=== PATIENT | female | born 1985 | race Caucasian/White ===

== ENCOUNTER 2022-03-18 14:03 | Outpatient (CLI) | payer OTHER, SELFPAY ==
[2022-03-18 15:45] LABS: Alanine Aminotransferase 23 U/L (6-35); Albumin Level 4.6 g/dL (3.5-5.1); Alkaline Phosphatase 73 U/L (38-126); Amylase 86 U/L (30-110); Aspartate Amino Transferase 23 U/L (14-36); Bilirubin,Total 0.4 mg/dL (0.2-1.3); Lipase 86 U/L (23-300)
== END 2022-03-18 14:04 | disposition home or self-care (01) ==
PROVIDERS: PCP Nurse Practitioner Family; Visit Provider Surgery
DX: K80.10 Calculus of gallbladder with chronic cholecystitis without obstruction (principal); Z01.818 Encounter for other preprocedural examination
CPT/HCPCS: 36415; 80076; 82150; 83690; 86850; 86900; 86901

== ENCOUNTER 2022-03-22 01:25 | Day surgery (SDC) | payer OTHER, SELFPAY ==
[2022-03-16 14:28] VITALS: BMI 33.7
--- NOTE | 2022-03-16 14:29 | SUR.PREOP ---
Addendum entered by Moni Lozano RN 03/17/22 11:01: MAY TAKE ESCITALOPRAM MORNING OF SURGERY WITH A SMALL SIP OF WATER. Original Note: Report to the Outpatient Waiting Room, entrance under the model pavilion located off [facility], at time _0830 on date _03/22/22 . OR Time: __1030 . - You and your visitor will be asked to self-screen and do not enter if you have any COVID symptoms. - Only one visitor and NO children visitors are allowed at this time. - The patient visitor is requested to leave or wait in car when not with patient due to restrictions. - A mask is required within the hospital. Patients may have clear liquids (water, carbonated beverages, clear teas, apple juice) until 3 hours prior to surgery with a maximum of 20 ounces. - No food from midnight until time of surgery - Infants may have breast milk until 4 hours before surgery, infant formula 6 hours prior to surgery. - Children will be allowed to drink immediately following surgery. If applicable, please bring a bottle or sippy cup to assist with drinking. Juice, water, soda, and popsicles are readily available. For infants on formula, please bring formula the day of surgery. Pacifiers are allowed. Take the following medications with a SIP of water the morning of surgery: ____n/a Medications to discontinue per physician n/a Date to take last dose__n/a Please no make-up, nail wolof, hairspray, perfume, deodorant, or body powder the day of surgery. No jewelry (including any body piercings) or valuables the day of surgery, leave them at home. Please take a shower or bath the night before, or the morning of, surgery with an antibacterial soap. Wear comfortable, loose fitting clothing. Children are encouraged to wear pajamas. HIBICLENS SHOWER AM OF SURGERY - Jewelry must be removed prior to entering the operating room. Rings and piercings that are not removed may be cut off. - The hospital will not accept responsibility for valuables. - Please leave all valuables, including medications, at home the day of surgery. If you are going home after surgery, a licensed sheet pile driver operator must drive you home. - NO public transportation without another adult. - We recommend that an adult stay with you for 24 hours following discharge. - We also recommend that you do not drive, make important decision, drink alcoholic beverages, or take any drugs that were not prescribed by your health care provider for at least 24 hours after your discharge time. For Pediatric surgeries, we recommend two adults accompany the child home (only one inside the building at this time). Follow any additional instructions given to you from your surgeon. If you or anyone in your household have experienced Covid symptoms in the past week, please notify your surgeon or the nurse liaison at the phone number below for possible testing. Telephone instructions given to __dora cross and asked if any additional questions and then verbalized understanding. Patient advised to call surgeon office or pre surgery nurse liaison [phone] if any additional questions.
[2022-03-22] VITALS (10 sets, daily range): BP systolic 97–129; BP diastolic 58–93; PULSE 61–74; RESP 16–24; TEMP 36.4–36.6; O2SAT 93–100
--- NOTE | 2022-03-22 10:11 | WPDANESEPPF ---
Anes - Initial Pre Proc Eval Procedure: Operation Date: 03/22/22 14:00 Proposed Procedures p Laparoscopic Cholecystectomy - Amie Reyes MD <Sinan Nelson DO - Last Filed: 03/22/22 12:24> Date/Time: 03/22/22 10:11 <Sinan Nelson DO - Last Filed: 03/22/22 12:24> Surgeon: Amie Reyes MD <Sinan Nelson DO - Last Filed: 03/22/22 12:24> Pre Op Diagnosis: Chronic Cholecystitis with Cholelithiasis <Sinan Nelson DO - Last Filed: 03/22/22 12:24> Patient Data Age: 36 Gender: F Height: 1.7 m Weight: 97.72 kg <Sinan Nelson DO - Last Filed: 03/22/22 12:24> Allergies Allergy/AdvReac Type Severity Reaction Status Date / Time No Known Allergies Allergy Verified 03/22/22 11:56 <Sinan Nelson DO - Last Filed: 03/22/22 12:24> Home Medications Medication Instructions Recorded Confirmed Type atogepant 60 mg tablet (Qulipta) 60 mg PO DAILY 03/01/22 03/22/22 History escitalopram oxalate 5 mg tablet 5 mg PO DAILY 03/01/22 03/22/22 History omeprazole 40 mg capsule,delayed 40 mg PO DAILY 03/01/22 03/22/22 History release ubrogepant 100 mg tablet (Ubrelvy) 100 mg PO PRN 03/01/22 03/16/22 History <Sinan Nelson DO - Last Filed: 03/22/22 12:24> Patient hx anesthesia problems: none <Pito Stone MD - Last Filed: 03/22/22 12:06> Family hx anesthesia problems: none <Pito Stone MD - Last Filed: 03/22/22 12:06> Results Review: All pre-operative results and documents have been reviewed as part of the pre-operative evaluation. <Sinan Nelson DO - Last Filed: 03/22/22 12:24> [facility] Past Medical History Medical History: Medical History (Updated 03/22/22 @ 12:24 by Sinan Nelson DO) Acute anxiety GERD (gastroesophageal reflux disease) History of PCOS Migraine <Sinan Nelson DO - Last Filed: 03/22/22 12:24> Surgical History Surgical History: Surgical History H/O tubal ligation 2017 H/O wisdom tooth extraction 2020 <Sinan Nelson DO - Last Filed: 03/22/22 12:24> Social History Social History: Social History Social History: daily caffeine use- 1 cup of coffee per day Smoking status: Never smoker Alcohol intake: current Drinks per week: 1 Alcohol use details: social use-wine Substance use: never Substance use type: does not use Living arrangements: with family Additional living arrangements comments: Patient is with one child 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 Gender identity (if verbalized by the patient): Female Sexual Orientation (if Verbalized by the Patient): Straight or Heterosexual Spiritual care concerns: No <Sinan Nelson DO - Last Filed: 03/22/22 12:24> Anes - Eval Final PreProcedure Day of Procedure 03/22/22 10:11 <Sinan Nelson DO - Last Filed: 03/22/22 12:24> Patient weight: obese <Sinan Nelson DO - Last Filed: 03/22/22 12:24> Heart: regular rate and rhythm <Sinan Nelson DO - Last Filed: 03/22/22 12:24> Lungs: clear to auscultation <Sinan Nelson DO - Last Filed: 03/22/22 12:24> Airway: Mallampati scale class II <Sinan Nelson DO - Last Filed: 03/22/22 12:24> Neurological: alert and oriented <Sinan Nelson DO - Last Filed: 03/22/22 12:24> Last oral intake: >/= 8 hours <Sinan Nelson DO - Last Filed: 03/22/22 12:24> ASA classification: II <Sinan Nelson DO - Last Filed: 03/22/22 12:24> Emergent: no <Sinan Nelson DO - Last Filed: 03/22/22 12:24> Anesthetic plan: proceed <Sinan Nelson DO - Last Filed: 03/22/22 12:24> Anesthesia type and monitoring: general
--- NOTE | 2022-03-22 11:08 | WPDHPUPDATE1 ---
History and Physical Update Update Date/Time: 03/22/22 11:08 History and Physical has been reviewed, including an updated exam of the patient. There are NO changes in the patient's condition. Risks, benefits, and alternatives have been discussed and questions answered. Patient agrees to proceed with procedure.
[2022-03-22] MEDS: ACETAMINOPHEN 500 MG TABLET 1000 MG PO (12:02)
[2022-03-22] MEDS: LACTATED RINGERS 1,000 ML 30 ML IV CONT ×2 (12:15→15:10)
[2022-03-22] MEDS: KETOROLAC 15 MG/ML VIAL (*BKC) IV PUSH (12:17)
[2022-03-22] MEDS: ceFAZolin 2 GM/D5W 50 ML 2 GM/50 ML BAG IVPB (13:05)
[2022-03-22] MEDS: BUPIVACAINE/EPINEPHRINE 0.25% 50 ML VIAL 30 ML INFILTRATE (13:32)
--- NOTE | 2022-03-22 14:14 | W.PM.PROC2 ---
Procedure Note - Detailed Date of Procedure 03/22/22 Pre-op Diagnosis Chronic Cholecystitis with Cholelithiasis Post-op Diagnosis Same Procedure Performed Laparoscopic cholecystectomy Surgeon Amie Reyes MD Anesthesia General Indications 36-year-old female presented to the office complaining of postprandial right upper quadrant abdominal pain associated with nausea and vomiting. Workup including imaging significant for cholecystitis, cholelithiasis. Findings Cholecystitis with cholelithiasis Description of Procedure The patient was taken to the operating room placed in the supine position. After adequate induction of general anesthesia, the patient was prepped and draped in normal sterile fashion. A time-out was then performed to verify the patient's identity as well as the procedure being performed. I then made a 5 mm incision in the infraumbilical region. Through this, a Veress needle was placed into the peritoneal cavity and CO2 gas was then insufflated. After adequate pneumoperitoneum was achieved, the Veress needle was removed and a 5 mm optiview trocar was placed through this incision under direct visualization. I then placed the laparoscope through this trocar site and under direct visualization placed a further 12 mm subxiphoid port as well as 2 additional 5 mm ports in the right upper abdomen. The gallbladder was then identified and was noted to be moderately inflamed, distended, and full of gallstones. I was able to place a grasper at the dome of the gallbladder and this was retracted anterior and cephalad up over the liver. A 2nd retractor was then placed at the infundibulum and retracted laterally, this allowed visualization of the triangle of Calot. I then was able to visualize the cystic duct in its entirety from its proximal insertion into the gallbladder, to its distal junction with the common hepatic/common bile duct junction. At this point, I carefully skeletonized the proximal cystic duct with the [place] dissector. I then clipped and transected the proximal cystic duct. Next I visualized the cystic artery. Again the artery was skeletonized, clipped, and transected. I then used the Bovie cautery to take down the peritoneal attachments of the gallbladder off the liver bed. This was somewhat difficult given the amount of inflammation in the posterior space. Once the gallbladder specimen was completely detached, an endo-pouch was placed through the 12 mm port site. I then placed the gallbladder specimen into the Endo pouch and removed the endo-pouch from the 12 mm port site. The specimen will now be sent to pathology for further review. I then copiously irrigated the right upper quadrant. Hemostasis was noted in the liver bed, the clips were noted to be in good position on both the cystic duct stump and the cystic artery stump. No other pathology was noted in the right upper quadrant. I then moved the laparoscope to the subxiphoid port. No iatrogenic injury or other pathology was noted in the lower abdomen. I then closed the 12 mm trocar site under direct visualization using the Vicente cone and 0 Vicryl suture. At this point, the abdomen was desufflated and all ports removed. All port sites were then closed with 4.O Monocryl subcuticular sutures. Dermabond was placed on each incision. The patient tolerated the procedure well, was extubated in the operating room postoperative and will be transferred to the recovery room in stable condition Estimated Blood Loss 5 Drains No Packing No Pathology Yes Complications No immediate complications Condition Stable Disposition PACU [facility] Billing Surgery - Charge Forward: Surgery Billing
[2022-03-22] MEDS: fentaNYL CITRATE INJ (*CRX) 100 MCG/2 ML VIAL 25 MCG IV PUSH ×8 (14:40→15:15)
[2022-03-22] MEDS: ONDANSETRON INJ 4 MG/2 ML VIAL IV PUSH (15:10)
[2022-03-22] MEDS: diphenhydrAMINE HCl INJ 50 MG/ML VIAL 25 MG IV PUSH (16:16)
[2022-03-22] MEDS: oxyCODONE HCL (*CRX) 5 MG TAB IR PO (16:27)
== END 2022-03-22 17:07 | disposition home or self-care (01) ==
PROVIDERS: PCP Nurse Practitioner Family; Visit Provider Surgery
PROC: 0FT44ZZ Resection of Gallbladder, Percutaneous Endoscopic Approach (ICD-10-PCS; CPT 47562; principal; 2022-03-22 14:00)
DX: K80.10 Calculus of gallbladder with chronic cholecystitis without obstruction (principal); R10.11 Right upper quadrant pain; F41.9 Anxiety disorder, unspecified; E28.2 Polycystic ovarian syndrome; E03.9 Hypothyroidism, unspecified; E66.9 Obesity, unspecified; Z68.35 Body mass index [BMI] 35.0-35.9, adult
CPT/HCPCS: 47562; 36415; 80076; 82150; 83690; 86850; 86900; 86901; 88304; A9270; J0690; J1100; J1200; J1885; J2250; J2405; J2704; J2710; J3010; J7030; J7120

== ENCOUNTER 2022-06-18 09:08 | Outpatient (CLI) | payer OTHER, SELFPAY ==
[2022-06-07 16:30] LABS: Beta HCG Quantitative 103.73 mIU/ML
[2022-06-09 16:53] LABS: Beta HCG Quantitative 252.91 mIU/ML
== END 2022-06-18 09:09 | disposition home or self-care (01) ==
PROVIDERS: Obstetrics & Gynecology; PCP Nurse Practitioner Family; Visit Provider Obstetrics & Gynecology
DX: N92.6 Irregular menstruation, unspecified (principal); N94.89 Other specified conditions associated with female genital organs and menstrual cycle
CPT/HCPCS: 36415; 84702

== ENCOUNTER 2022-06-28 09:44 | Outpatient (CLI) | payer OTHER, SELFPAY ==
[2022-06-28 11:57] LABS: Basophils Absolute Auto 0.1 K/mm3 (0.0-0.1); Basophils Percent Auto 0.8 % (0.2-1.2); Eosinophils Absolute Auto 0.2 K/mm3 (0-0.3); Eosinophils Percent Auto 2.3 % (0-4.4); Hematocrit 37.4 % (37.0-47.0); Hemoglobin 12.6 g/dL (12.0-15.0); Immature Granulocyte Absolute 0.02 K/mm3 (0.00-0.031); Immature Granulocyte Percent A 0.3 % (0-0.5); Lymphocytes Absolute Auto 1.71 K/mm3 (0.9-3.2); Lymphocytes Percent Auto 26.1 % (18.3-44.2); Mean Corpuscular HGB Conc 33.7 g/dl (32-36); Mean Corpuscular Hemoglobin 29.5 pg (26-34); Mean Corpuscular Volume 87.6 fl (80-100); Mean Platelet Volume 11.3 fl (7.4-10.4); Monocytes Absolute Auto 0.4 K/mm3 (0.1-0.6); Monocytes Percent Auto 6.4 % (2.6-8.5); Neutrophils Absolute Auto 4.2 K/mm3 (1.3-6.7); Neutrophils Percent Auto 64.1 % (45.5-73.1); Platelet Count Result 290 k/mm3 (150-375); Red Blood Count 4.27 M/mm3 (4.2-5.4); Red Cell Distribution Width 12.9 % (11.5-14.5); White Blood Count 6.6 K/mm3 (4.5-10.0)
[2022-06-28 12:14] LABS: Glucose 1 Hour PP 50gm Dose 98 mg/dL
[2022-06-28 12:44] LABS: Rapid Plasma Reagin Non-Reactive (NonReactive)
[2022-06-28 12:53] LABS: HIV 1/2 Ab P24 Ag Result Negative (Negative)
[2022-06-28 12:55] LABS: Hepatitis B Surface Antigen Negative (Negative); Rubella IgG Antibody 3.6 IU/ML
[2022-06-30 17:05] LABS: CMV IgG Antibody <0.60 U/mL (<0.60)
[2022-07-05 18:06] LABS: CF Result NEGATIVE (NEGATIVE); Ethnicity NG
[2022-07-06 12:08] LABS: SMA 2.0 RISK VARIANT NOT DETECTED
[2022-07-21 15:58] LABS: SMA Results Received Yes
== END 2022-06-28 09:45 | disposition home or self-care (01) ==
LOC: ANHLAB 09:46
PROVIDERS: PCP Nurse Practitioner Family; Visit Provider Obstetrics & Gynecology
DX: N94.89 Other specified conditions associated with female genital organs and menstrual cycle (principal)
CPT/HCPCS: 36415; 81220; 81329; 82947; 84702; 85025; 86592; 86644; 86703; 86747; 86762; 86787; 86850; 86900; 86901; 87086; 87088; 87340; G0432

== ENCOUNTER 2022-11-24 12:05 | Outpatient (CLI) | payer OTHER, SELFPAY ==
[2022-11-24 13:42] LABS: Hematocrit 36.5 % (37.0-47.0); Hemoglobin 11.9 g/dL (12.0-15.0); Mean Corpuscular HGB Conc 32.6 g/dl (32-36); Mean Platelet Volume 11.1 fl (7.4-10.4); Platelet Count Result 246 k/mm3 (150-375); Red Cell Distribution Width 14.3 % (11.5-14.5); White Blood Count 9.8 K/mm3 (4.5-10.0)
[2022-11-24 13:57] LABS: Glucose 1 Hour PP 50gm Dose 159 mg/dL
[2022-11-24 14:39] LABS: HIV 1/2 Ab P24 Ag Result Negative (Negative)
== END 2022-11-24 12:06 | disposition home or self-care (01) ==
LOC: ANHLAB 12:06
PROVIDERS: PCP Nurse Practitioner Family; Visit Provider Student in an Organized Health Care Education/Training Program
DX: Z34.90 Encounter for supervision of normal pregnancy, unspecified, unspecified trimester (principal)
CPT/HCPCS: 36415; 82947; 85027; 86703; G0432

== ENCOUNTER 2022-11-29 09:40 | Outpatient (CLI) | payer OTHER, SELFPAY ==
[2022-11-29 10:03] LABS: Glucose Fasting 82 mg/dL
[2022-11-29 11:33] LABS: Glucose 1 Hour 167 mg/dL
[2022-11-29 12:44] LABS: Glucose 2 Hour 136 mg/dL
[2022-11-29 13:52] LABS: Glucose 3 Hour 116 mg/dL
== END 2022-11-29 09:41 | disposition home or self-care (01) ==
PROVIDERS: PCP Nurse Practitioner Family; Visit Provider Student in an Organized Health Care Education/Training Program
DX: Z34.90 Encounter for supervision of normal pregnancy, unspecified, unspecified trimester (principal); Z3A.00 Weeks of gestation of pregnancy not specified
CPT/HCPCS: 36415; 82951; 82952

== ENCOUNTER 2023-01-12 15:35 | Outpatient (CLI) | payer OTHER, SELFPAY ==
--- NOTE | ~2023-01-12 | US_ITS ---
EXAMINATION: US OB BPP wo non-stress DATE: 01/12/23 INDICATION: Third trimester. TECHNIQUE: Real-time pelvic ultrasound was performed. COMPARISON: None. FINDINGS: There is a single living fetus in vertex presentation. The placenta is anterior. heart rate is 142 beats per minute (bpm). The amniotic fluid index is 8.6 cm which is normal. Biophysical profile performed by the technologist: breathing (30 sec sustained breathing in 30 minutes): 2 out of 2 movement (3 gross body movements in 30 minutes): 2 out of 2 tone (one episode of bdpwoyn-ktqjputae-nwjkixy limb movement): 2 out of 2 Amniotic fluid pocket (2 cm): 2 out of 2 Total score: 8 out of 8 IMPRESSION: 1. Single living fetus in vertex presentation. 2. Biophysical profile 8 out of 8. Reviewed, dictated and finalized at location A.
[2023-01-12 19:00] VITALS: BP 143/98; PULSE 90
[2023-01-12] MEDS: BETAMETHASONE SOD PHOS/ACETATE 30 MG/5 ML VIAL 12 MG IM (19:00)
--- NOTE | 2023-01-12 19:00 | PC.NURSE ---
See down time orders, See Obix for additional BP's.
[2023-01-13 12:15] LABS: Hemoglobin 12.6 g/dL (12.0-15.0); Mean Corpuscular Volume 88.5 fl (80-100); Red Blood Count 4.52 M/mm3 (4.2-5.4); White Blood Count 10.1 K/mm3 (4.5-10.0)
[2023-01-13 12:16] LABS: Basophils Absolute Auto 0.1 K/mm3 (0.0-0.1); Basophils Percent Auto 0.5 % (0.2-1.2); Eosinophils Absolute Auto 0.1 K/mm3 (0-0.3); Eosinophils Percent Auto 0.9 % (0-4.4); Immature Granulocyte Absolute 0.11 K/mm3 (0.00-0.031); Immature Granulocyte Percent A 1.1 % (0-0.5); Lymphocytes Percent Auto 13.8 % (18.3-44.2); Mean Corpuscular HGB Conc 31.5 g/dl (32-36); Mean Corpuscular Hemoglobin 27.9 pg (26-34); Mean Platelet Volume 11.8 fl (7.4-10.4); Monocytes Absolute Auto 0.8 K/mm3 (0.1-0.6); Monocytes Percent Auto 8.2 % (2.6-8.5); Neutrophils Absolute Auto 7.6 K/mm3 (1.3-6.7); Neutrophils Percent Auto 75.5 % (45.5-73.1); Platelet Count Result 253 k/mm3 (150-375); Red Cell Distribution Width 13.8 % (11.5-14.5)
[2023-01-13 12:17] LABS: Alanine Aminotransferase 15 U/L (6-35); Albumin Level 3.7 g/dL (3.5-5.1); Alkaline Phosphatase 130 U/L (38-126); Anion Gap 10 mmol/L (8-16); Aspartate Amino Transferase 25 U/L (14-36); Bilirubin,Total 0.5 mg/dL (0.2-1.3); Blood Urea Nitrogen 4 mg/dL (7-17); Calcium 8.7 mg/dL (8.4-10.2); Carbon Dioxide 24 mmol/L (22-30); Chloride 101 mmol/L (98-107); Estimated Glomerular Filt Rate > 60; Glucose 67 mg/dL (65-110); Potassium 3.3 mmol/L (3.4-5.0); Sodium 135 mmol/L (137-145); Total Protein 7.3 g/dL (6.3-8.2)
[2023-01-13 12:20] LABS: Creatinine Urine 37.3 mg/dL; Total Protein Urine Random 14 mg/dL; Ur Ttl Prot Creatinine Ratio 0.38 mg/mg (0-0.20)
[2023-01-13 12:21] LABS: Appearance Urine Clear (Clear); Blood Urine Negative (Negative); Color Urine Yellow (Yellow); Glucose Urine UA Negative (Negative); Ketones Urine 2+ mg/dL (Negative); Nitrate Urine Negative (Negative); Protein Urine Negative (Negative); Specific Grav Ur 1.007 (1.001-1.035); pH Urine 6.5 (5.0-9.0)
[2023-01-13 12:22] LABS: Add Urine Microscopic? NO; Bilirubin Urine Negative (Negative); Leukocyte Esterase Ur Negative LEU/UL (Negative); Urobilinogen Urine 0.2 mg/dL (<2.0)
== END 2023-01-12 19:00 | disposition home or self-care (01) ==
LOC: ANHOBOP 18:17
PROVIDERS: PCP Nurse Practitioner Family; Visit Provider Obstetrics & Gynecology
DX: O13.9 Gestational [pregnancy-induced] hypertension without significant proteinuria, unspecified trimester (principal); Z3A.00 Weeks of gestation of pregnancy not specified
CPT/HCPCS: 36415; 59025; 76819; 80053; 81003; 81050; 82570; 84156; 84550; 85025; 87086; 87088; 96372; J0702

== ENCOUNTER 2023-01-13 18:51 | Outpatient (CLI) | payer OTHER, SELFPAY ==
--- NOTE | 2023-01-13 19:05 | PC.NURSE ---
Pt reports hand tingling, feeling flush today, headache this AM but since resolved. Contractions this morning but since resolved. No other s/s
[2023-01-13 19:07] VITALS: BP 127/89; PULSE 97
--- NOTE | 2023-01-13 19:15 | PC.NURSE ---
Dr. Singer on unit. Reviewed demetrio s/s. Giancarlo to discharge patient after reactive NST.
[2023-01-13 19:16] VITALS: BP 131/81; PULSE 85
[2023-01-13 19:30] VITALS: BP 115/81; PULSE 90
[2023-01-13] MEDS: BETAMETHASONE SOD PHOS/ACETATE 30 MG/5 ML VIAL 12 MG IM (19:43)
--- NOTE | 2023-01-13 19:46 | PC.NURSE ---
D/c insturctions reveiwed with pt. PreE s/s reviewed with pt and handout given.
== END 2023-01-13 19:47 | disposition home or self-care (01) ==
LOC: ANHOBOP 18:55 → ANHOBPP 18:55
PROVIDERS: PCP Nurse Practitioner Family; Visit Provider Obstetrics & Gynecology
DX: O13.9 Gestational [pregnancy-induced] hypertension without significant proteinuria, unspecified trimester (principal); Z3A.00 Weeks of gestation of pregnancy not specified
CPT/HCPCS: 59025; 96372; 99199; J0702

== ENCOUNTER 2023-01-15 11:54 | Outpatient (RCR) | payer OTHER, SELFPAY ==
[2023-01-15 12:12] VITALS: BMI 35.9
[2023-01-15 12:28] LABS: Collection Time Urine 24 HOURS
[2023-01-15 12:29] LABS: Total Volume 24 Hour Urine 2000 ml
[2023-01-15 12:46] LABS: Hematocrit 36.7 % (37.0-47.0); Hemoglobin 11.8 g/dL (12.0-15.0); Mean Corpuscular HGB Conc 32.2 g/dl (32-36); Mean Corpuscular Hemoglobin 28.3 pg (26-34); Mean Platelet Volume 11.9 fl (7.4-10.4); Platelet Count Result 278 k/mm3 (150-375); Red Blood Count 4.17 M/mm3 (4.2-5.4); White Blood Count 13.2 K/mm3 (4.5-10.0)
[2023-01-15 13:01] LABS: Alanine Aminotransferase 18 U/L (6-35); Albumin Level 3.8 g/dL (3.5-5.1); Alkaline Phosphatase 122 U/L (38-126); Anion Gap 6 mmol/L (8-16); Aspartate Amino Transferase 22 U/L (14-36); Bilirubin,Total 0.4 mg/dL (0.2-1.3); Blood Urea Nitrogen 7 mg/dL (7-17); Calcium 8.5 mg/dL (8.4-10.2); Carbon Dioxide 25 mmol/L (22-30); Chloride 106 mmol/L (98-107); Estimated CRCL calculation 198 ml/min; Estimated Glomerular Filt Rate > 60; Glucose 99 mg/dL (65-110); Potassium 3.2 mmol/L (3.4-5.0); Sodium 137 mmol/L (137-145)
[2023-01-15 13:12] VITALS: BP 124/80; PULSE 79
[2023-01-15 13:19] LABS: Creatinine Clearance Urine 167.5 ml/min (75-125); Creatinine Urine 74.4 mg/dL; Patient Weight 229 Lbs; Total Protein Urine 24 Hr 180 mg/24hr (28-141); Total Protein Urine Random 9 mg/dL
--- NOTE | 2023-01-15 13:41 | PC.NURSE ---
Dr. Johnson informed 24 hr urine total protein result was 180.
== END 2023-03-14 13:04 | disposition home or self-care (01) ==
LOC: ANHOBOP 11:54
PROVIDERS: PCP Nurse Practitioner Family; Visit Provider Obstetrics & Gynecology
DX: O16.3 Unspecified maternal hypertension, third trimester (principal); Z3A.36 36 weeks gestation of pregnancy
CPT/HCPCS: 36415; 59025; 80053; 81050; 82575; 84156; 84550; 85027

== ENCOUNTER 2023-01-19 05:50 | Inpatient (IN) | payer OTHER, SELFPAY ==
[2023-01-19] VITALS (146 sets, daily range): BP systolic 113–153; BP diastolic 72–116; PULSE 70–140; RESP 16; TEMP 36.5–37.7; O2SAT 94–100; BMI 35.9
[2023-01-19 06:56] LABS: Basophils Absolute Auto 0.1 K/mm3 (0.0-0.1); Basophils Percent Auto 0.4 % (0.2-1.2); Eosinophils Absolute Auto 0.1 K/mm3 (0-0.3); Hematocrit 39.9 % (37.0-47.0); Immature Granulocyte Absolute 0.22 K/mm3 (0.00-0.031); Immature Granulocyte Percent A 1.7 % (0-0.5); Lymphocytes Absolute Auto 2.27 K/mm3 (0.9-3.2); Lymphocytes Percent Auto 17.4 % (18.3-44.2); Mean Corpuscular HGB Conc 32.6 g/dl (32-36); Mean Corpuscular Hemoglobin 28.1 pg (26-34); Mean Corpuscular Volume 86.4 fl (80-100); Mean Platelet Volume 11.7 fl (7.4-10.4); Monocytes Absolute Auto 0.9 K/mm3 (0.1-0.6); Neutrophils Absolute Auto 9.5 K/mm3 (1.3-6.7); Neutrophils Percent Auto 72.5 % (45.5-73.1); Platelet Count Result 294 k/mm3 (150-375); Red Blood Count 4.62 M/mm3 (4.2-5.4); Red Cell Distribution Width 13.8 % (11.5-14.5); White Blood Count 13.1 K/mm3 (4.5-10.0)
[2023-01-19] MEDS: OXYTOCIN 30 UNITS/NS 500 ML 30 UNITS/500 ML BAG IV CONT (06:59)
[2023-01-19] MEDS: LACTATED RINGERS 1,000 ML 125 ML IV CONT ×3 (06:59→14:14)
[2023-01-19 07:05] LABS: Alanine Aminotransferase 18 U/L (6-35); Albumin Level 3.7 g/dL (3.5-5.1); Alkaline Phosphatase 118 U/L (38-126); Anion Gap 9 mmol/L (8-16); Aspartate Amino Transferase 21 U/L (14-36); Bilirubin,Total 0.4 mg/dL (0.2-1.3); Blood Urea Nitrogen 6 mg/dL (7-17); Calcium 8.8 mg/dL (8.4-10.2); Carbon Dioxide 23 mmol/L (22-30); Chloride 102 mmol/L (98-107); Estimated Glomerular Filt Rate > 60; Glucose 117 mg/dL (65-110); Potassium 3.5 mmol/L (3.4-5.0); Sodium 134 mmol/L (137-145); Uric Acid 3.7 mg/dL (2.5-7.5)
--- NOTE | 2023-01-19 07:10 | LDADM ---
This patient, Chantale Warren, was admitted to Labor/Delivery/Recovery 104 on 01/19/23 at 05:50. Plans for labor, pain management and were discussed with patient. Patient/family oriented to hospital policies and general routines including ID bracelet, bed and alarms, visiting hours, pain management, procedures, bathroom and other care routines, personal items, smoking policy, room service/diet and guest tray routines, infant security routines, and visiting hours. Patient/Family are encouraged to report perceived risks to care and to ask questions if they do not understand what they are told or what they should do. See OBIX for further documentation.
--- NOTE | 2023-01-19 07:12 | PM.IMHP ---
H&P: HPI History of Present Illness Date/Time: 01/19/23 07:12 Chief Complaint: induction of labor Narrative: Chantale is a 37yo @ 37.0wks who presents for induction of labor due to GHTN. She had elevated BPs in the office at 35wks; PEC w/u was positive for P/C ratio of 0.38; but 24 hour urine protein was 180. She followed with testing. She denies any symptoms of severe pre-eclampsia. She feels good movement. No VB or LOF Her is complicated by: - Obesity - H/o migraines - PCOS; h/o IUI w/ first - AMA at time of delivery - Anxiety on lexapro- self-stopped (09/23) Hydroxyzine PRN - Paternal history of cardiac defect... normal echocardio - GHTN Review of Systems Constitutional: Constitutional: Denies chills, Denies fever(s) and Denies headache(s) Eyes: Eyes: Denies change in vision ENT: Denies headache(s) Cardiovascular: Cardiovascular: Denies chest pain and Denies dyspnea Respiratory: Respiratory: Denies dyspnea Genitourinary: Genitourinary: Denies abnormal vaginal bleeding and Denies vaginal discharge Neurologic: Denies headache(s) Psychiatric: Psychiatric: Denies anxiety and Denies depression [facility] Past Medical History Medical History Acute anxiety Advanced maternal age (AMA) in GERD (gastroesophageal reflux disease) History of PCOS Irregular periods/menstrual cycles Migraine Suppression of menses Surgical History Surgical History H/O wisdom tooth extraction 2020 Hx laparoscopic cholecystectomy 03/22/22 Family History Family History (Updated 01/19/23 @ 07:12 by Shelbi Cuenca RN) Grandparent Acute myocardial infarction Congestive heart failure Diabetes mellitus Hypertension Social History Social History (Updated 01/05/23 @ 14:12 by Candis Flores MA) Social History: daily caffeine use- 1 cup of coffee per day Smoking status: Never smoker Alcohol intake: never Alcohol use details: Substance use: never Substance use type: does not use Lack of Transportation: No Lack of Food: Never True Current Housing: I Have Housing Concerned About Future Housing: No Difficulty Paying Gas/Electric Bills: No Difficulty Paying for Meds: No Currently Unemployed: No Education: Bachelor's Degree Difficulty w/ Childcare or Family Care: No Living arrangements: with family Additional living arrangements comments: Patient is with one child Occupation/Education: occupation 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 Gender identity (if verbalized by the patient): Female Sexual Orientation (if Verbalized by the Patient): Straight or Heterosexual Spiritual care concerns: No Meds Home Medications and Allergies Home Medications Medication Instructions Recorded Confirmed Type doxylamine succinate 25 mg tablet 12.5 mg PO Q4-6H #90 tabs 06/22/22 01/19/23 Rx (Unisom (doxylamine)) prenat.vits,wong,xcj-ecrr-ptlac 1 tablet PO DAILY 06/22/22 01/19/23 History hydroxyzine HCl 25 mg tablet 25 mg PO BID PRN nausea and 09/23/22 01/19/23 Rx vomiting #30 tabs aspirin 81 mg capsule 81 mg PO DAILY 01/19/23 01/19/23 History Allergies Allergy/AdvReac Type Severity Reaction Status Date / Time No Known Allergies Allergy Verified 01/13/23 19:33 Vital Signs Vital Signs - 24 hr 01/19/23 06:59 01/19/23 07:01 Pulse Rate 114 H 114 H Blood Pressure 124/96 H 115/89 Exam Const: General: cooperative, no acute distress and obese Nutritional Appearance: obese Orientation/consciousness: patient oriented x3 Resp: Effort & Inspection: normal respiratory effort Cardio: Rate: regular rate GI: GI Palp: No abdominal tenderness : Other: FHT's: 150's/ mod susanna/ + accels/ no decels - cat 1 TOCO: irregular ctxs Cervix: 4.5/50/-2 Membranes: AROM, clear 0720 Presentatio
--- NOTE | 2023-01-19 07:25 | WPDHPUPDATE1 ---
History and Physical Update Update Date/Time: 01/19/23 07:25 History and Physical has been reviewed, including an updated exam of the patient. There are NO changes in the patient's condition. Risks, benefits, and alternatives have been discussed and questions answered. Patient agrees to proceed with procedure.
[2023-01-19 09:17] LABS: Rapid Plasma Reagin Non-Reactive (NonReactive)
--- NOTE | 2023-01-19 10:18 | PC.NURSE ---
0945- Introductions were made, mother states she plans to breastfeed, and shared her history with her first baby. There was some nipple shield use with the first. Parents were encouraged to keep eeoc-sv-weyz and wait on the weight if is stable until the first breastfeed. Mother was encouraged to protect her milk supply with hand expression using clean hands if infant doesn't latch within the first hour, and to finger feed colostrum to infant to preserve breast focus. Trifold education regarding bonding/feeding her infant was left with parents. Parents voiced understanding of calling if they request support.
--- NOTE | 2023-01-19 10:23 | WPDANESEPPF ---
Anes - Initial Pre Proc Eval Procedure: labor epidural Date/Time: 01/19/23 10:23 Surgeon: Susie Johnson MD Pre Op Diagnosis: labor pain Pre Op Diagnosis: Induction of Labor Patient Data Age: 37 Gender: F Height: 1.7 m Weight: 104 kg Last Vital Signs Temp 36.9 C 01/19/23 08:30 Pulse 76 01/19/23 10:16 Resp 16 01/19/23 08:30 BP 114/73 01/19/23 10:16 Pulse Ox 98 01/19/23 10:20 O2 Del Method Room Air 01/19/23 07:08 Allergies Allergy/AdvReac Type Severity Reaction Status Date / Time No Known Allergies Allergy Verified 01/13/23 19:33 Home Medications Medication Instructions Recorded Confirmed Type doxylamine succinate 25 mg tablet 12.5 mg PO Q4-6H #90 tabs 06/22/22 01/19/23 Rx (Unisom (doxylamine)) prenat.vits,wong,kpl-dihd-ifgeb 1 tablet PO DAILY 06/22/22 01/19/23 History hydroxyzine HCl 25 mg tablet 25 mg PO BID PRN nausea and 09/23/22 01/19/23 Rx vomiting #30 tabs aspirin 81 mg capsule 81 mg PO DAILY 01/19/23 01/19/23 History Laboratory Tests 01/19/23 01/19/23 06:49 06:49 WBC 13.1 H K/mm3 (4.5-10.0) RBC 4.62 M/mm3 (4.2-5.4) Hgb 13.0 g/dL (12.0-15.0) Hct 39.9 % (37.0-47.0) MCV 86.4 fl (80-100) MCH 28.1 pg (26-34) MCHC 32.6 g/dl (32-36) RDW 13.8 % (11.5-14.5) Plt Count 294 k/mm3 (150-375) MPV 11.7 H fl (7.4-10.4) Immature Gran % (Auto) 1.7 H % (0-0.5) Neut % (Auto) 72.5 % (45.5-73.1) Lymph % (Auto) 17.4 L % (18.3-44.2) [place] % (Auto) 7.0 % (2.6-8.5) Eos % (Auto) 1.0 % (0-4.4) Baso % (Auto) 0.4 % (0.2-1.2) Lymph # (Auto) 2.27 K/mm3 (0.9-3.2) [place] # (Auto) 0.9 H K/mm3 (0.1-0.6) Eos # (Auto) 0.1 K/mm3 (0-0.3) Baso # (Auto) 0.1 K/mm3 (0.0-0.1) Abs Immat Gran (auto) 0.22 H K/mm3 (0.00-0.031) Absolute Neuts (auto) 9.5 H K/mm3 (1.3-6.7) Absolute Nucleated RBC 0.0 K/mm3 (0.0-0.012) Nucleated RBC % 0.0 % (0.0-0.2) Sodium 134 L mmol/L (137-145) Potassium 3.5 mmol/L (3.4-5.0) Chloride 102 mmol/L (98-107) Carbon Dioxide 23 mmol/L (22-30) Anion Gap 9 mmol/L (8-16) BUN 6 L mg/dL (7-17) Creatinine 0.40 L mg/dL (0.7-1.0) Estim Creat Clear Calc Not Reportable Estimated GFR > 60 (59 - ) Glucose 117 H mg/dL (65-110) Uric Acid Cancelled 3.7 mg/dL (2.5-7.5) Calcium 8.8 mg/dL (8.4-10.2) Total Bilirubin 0.4 mg/dL (0.2-1.3) AST 21 U/L (14-36) ALT 18 U/L (6-35) Alkaline Phosphatase 118 U/L (38-126) Total Protein 7.0 g/dL (6.3-8.2) Albumin 3.7 g/dL (3.5-5.1) RPR Non-reactive (NonReactive) Blood Type O Positive Antibody Screen Negative Patient hx anesthesia problems: none Family hx anesthesia problems: none Results Review: All pre-operative results and documents have been reviewed as part of the pre-operative evaluation. [facility] Past Medical History Medical History (Updated 01/19/23 @ 10:24 by Sinan Nelson DO) Acute anxiety Advanced maternal age (AMA) in GERD (gastroesophageal reflux disease) History of PCOS Irregular periods/menstrual cycles Migraine Preeclampsia Suppression of menses Surgical History Surgical History H/O wisdom tooth extraction 2020 Hx laparoscopic cholecystectomy 03/22/22 Family History Family History (Updated 01/19/23 @ 07:12 by Shelbi Cuenca RN) Grandparent Acute myocardial infarction Congestive heart failure Diabetes mellitus Hypertension Social History Social History (Updated 01/05/23 @ 14:12 by Candis Florse MA) Social History: daily caffeine use- 1 cup of coffee per day Smoking status: Never smoker Alcohol intake: never Alcohol use details:
--- NOTE | 2023-01-19 12:29 | PM.OBPNLAB ---
Pain Control Date/time seen: 01/19/23 12:29 Pain control: epidural Pelvic Exam Dilation (cm): 6 Effacement (%): 75 station: -2 Amniotic membrane status: Ruptured Contractions Monitor mode: Internal Contraction frequency: 3 (-4) Status status: Category l Assessment and Plan Pitocin rate (mU/min): 12 Assessment: active labor Plan: continuous present management
--- NOTE | 2023-01-19 15:15 | PM.OBPRVD ---
OB - Delivery Note Procedure Delivery date: 01/19/23 Events: Gestational Hypertension Induction method: Per Pitocin Protocol Delivery augmentation: Rupture of Membranes Delivery monitor: External FHT and Internal Uterine Route of delivery: Laceration Description: Periurethral (extending into right labia minora) Delivery repair: vicryl Specimen: Yes (placenta) Quantitative Blood Loss (ml): 100 Anesthesia type: Epidural Disposition: Floor Gatzke Baby Date of : 01/19/23 Time of : 14:45 Weeks of gestation at delivery: 37 gender: Male Weight (pounds): 6 Weight (ounces): 5 presentation: vertex position: Right Occiput Anterior Placenta delivery description: Expressed Cord Vessel Description: 3 Vessels, Nuchal Cord and Delayed Cord Clamping score one minute: 9 score five minutes: 9 Narrative: Chantale progressed to complete dilation with strong desire to push. She pushed for approximately 10 minutes with good maternal effort. She delivered the head over intact perineum. Nuchal cord was noted but loose and delivered through. She easily delivered the infant's shoulders and body without complication. The infant was immediately placed skin to skin and had spontaneous cry. Delayed cord clamping was performed. The umbilical cord was then clamped and cut. Segment of the cord was collected for cord gases. The remaining cord blood was collected for typing. With Pitocin running and gentle downward traction on the cord, the placenta delivered without complications. Bimanual massage was performed and a small piece of membrane was removed. Minimal bleeding was noted. Good tone was noted. She was examined and a right periurethral laceration extending into the right labia majora was noted. It was repaired in the normal fashion using 3-0 Vicryl. Good tone and minimal bleeding remained. Sponge, lap, instrument, and needle counts were correct at the end of the procedure. Mom and baby were left bonding in the birthing suite in stable condition. [facility] Delivery Billing Delivery Delivery: Delivery Charge
[2023-01-19] MEDS: OXYTOCIN 30 UNITS/NS 500 ML 30 UNITS/500 ML BAG 125 UNITS IV CONT (15:17)
[2023-01-19] MEDS: IBUPROFEN 600 MG TABLET PO ×2 (16:13→22:40)
--- NOTE | 2023-01-19 17:28 | PC.NURSE ---
Patient transferred to post room #279 via wheelchair. Support person present. Oriented to unit, room, information board, rooming in, admission packet and security measures. Patient verbalizes understanding.
[2023-01-20 04:30] VITALS: BP 109/69; PULSE 70; RESP 16; TEMP 36.2
[2023-01-20 05:30] LABS: Hematocrit 35.8 % (37.0-47.0); Hemoglobin 11.4 g/dL (12.0-15.0)
--- NOTE | 2023-01-20 07:22 | PM.OBPNVD ---
OB - PN: Subj Subjective Date/time seen: 01/20/23 07:22 Narrative: PPD#1 Chantale reports doing well today. 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 Her pain is controlled. She is tolerating regular diet, voiding, passing gas, and ambulating without issues. She is breast feeding. She would like her son circumcised. She would like to be discharged home today. OB - PN: Obj Data Labs 01/20/23 04:39 01/19/23 06:49 Labs: Laboratory Results - last 24 hr 01/19/23 01/20/23 06:49 04:39 Hgb 11.4 L Hct 35.8 L RPR Non-reactive Blood Type O Positive Antibody Screen Negative OB - PN A/P Assessment and Plan (1) Gestational hypertension: Qualifiers: Trimester: third trimester Qualified Code(s): O13.3 - Gestational [-induced] hypertension without significant proteinuria, third trimester Code(s): O13.9 - Gestational [-induced] hypertension without significant proteinuria, unspecified trimester Status: Acute (2) Normal vaginal delivery of second : Code(s): O80 - Encounter for full-term uncomplicated delivery Status: Acute Plan day: 1 Plan: routine care and discharge home (this evening) Comments: - Pelvic rest; take meds as prescribed - ER return precautions: fever, n/v/abd pain, bleeding, HTN Time Spent With Patient Time: Total time spent is greater than 50% in coordination of care (as documented) at patient's floor/unit and/or counseling patient: Review of Systems Constitutional: Constitutional: Denies chills, Denies fever(s) and Denies headache(s) Eyes: Eyes: Denies change in vision ENT: Denies dizziness and Denies headache(s) Cardiovascular: Cardiovascular: Denies chest pain, Denies palpitations and Denies dyspnea Respiratory: Respiratory: Denies cough and Denies dyspnea Gastrointestinal: Gastrointestinal: Denies nausea and Denies vomiting Neurologic: Denies dizziness and Denies headache(s) Endocrine: Endocrine: Denies palpitations Exam Const: General: cooperative, comfortable and no acute distress Orientation/consciousness: patient oriented x3 Resp: Effort & Inspection: normal respiratory effort Auscultation: clear to auscultation bilaterally Cardio: Rate: regular rate GI: Inspection: non-distended GI Palp: No abdominal tenderness and Yes Soft to palpation Auscultation: normal bowel sounds : Other: fundus firm Skin: General skin exam: normal color Neuro: General: patient oriented x3 Extrem: General: normal to inspection Psych: Appearance: grossly normal Affect: normal affect Attitude: cooperative
--- NOTE | 2023-01-20 07:49 | WPDANLDPN2 ---
Anes-Prog Note L&D Date/Time: 01/20/23 07:49 Comfortable throughout: labor and delivery Neuraxial method: epidural Epidural/Spinal procedure site: clean & non-tender Neuro status: Neuro function grossly intact. Cardiovascular status: normal Respiratory status: normal Airway patency: baseline Mental status: baseline Post-Op hydration status: normal Vital Signs: Last Vital Signs Temp 36.2 C L 01/20/23 04:30 Pulse 70 01/20/23 04:30 Resp 16 01/20/23 04:30 BP 109/69 01/20/23 04:30 Pulse Ox 99 01/19/23 17:50 O2 Del Method Room Air 01/19/23 07:08 Pain score (VAS): 2/10 I/O: Intake & Output 01/19/23 01/19/23 01/20/23 15:59 23:59 07:59 Intake Total 2500 1000 600 Output Total 1160 550 Balance 2500 -160 50 Post-procedural complaints: none Patient feedback: Patient satisfied with anesthetic care.
[2023-01-20] MEDS: WITCH HAZEL 40 PADS 1 PAD TOPICAL (08:00)
[2023-01-20] MEDS: DOCUSATE SODIUM 100 MG CAPSULE PO (08:00)
[2023-01-20] MEDS: IBUPROFEN 600 MG TABLET PO (08:00)
[2023-01-20] MEDS: MULTIVIT/MIN/PREN/FOL AC/IRON TABLET 1 TAB PO (08:00)
[2023-01-20 08:30] VITALS: BP 123/82; PULSE 82; RESP 16; TEMP 36.6; O2SAT 98
[2023-01-20 11:35] VITALS: BP 123/92; PULSE 88; RESP 18; TEMP 37; O2SAT 98
[2023-01-20] MEDS: MEASLES,MUMPS,RUBELLA VACCINE 0.5 ML VIAL SUB-Q (12:27)
--- NOTE | 2023-01-20 14:15 | PC.NURSE ---
[id number] Re-introductions were made, then consulted with patient to assess needs related to . Mother led the conversation with her?plans to feed?her and the?experience so far. Resources provided for inpatient and outpatient services with the mom/baby guide and name written on the white board. Mother verbalizes she is able to independently latch infant with appropriate positioning/alignment. She denies any nipple discomfort and is responsively . Infant is currently meeting outcomes for weight, output, jaundice and feeding frequencies of 8-12 times in 24 hours. Mother declines any additional assistance/education at this time. Mother is encouraged to call for assistance if her infant doesn?t latch or there is discomfort with latching. Mother voiced understanding of information shared.
[2023-01-21 09:37] VITALS: BP 121/89; PULSE 75; RESP 18; TEMP 36.6; O2SAT 99
--- NOTE | 2023-01-23 11:32 | PM.OBDSVD ---
DS: Admitting Diagnosis Discharge Date 01/20/23 Admitting Diagnosis induction of labor Gestational hypertension DS: Discharge Diagnosis Discharge Diagnosis (1) Gestational hypertension: Qualifiers: Trimester: third trimester Qualified Code(s): O13.3 - Gestational [-induced] hypertension without significant proteinuria, third trimester Code(s): O13.9 - Gestational [-induced] hypertension without significant proteinuria, unspecified trimester Status: Acute (2) Normal vaginal delivery of second : Code(s): O80 - Encounter for full-term uncomplicated delivery Status: Acute OB - DS: Summary OB Procedures : NST, PIH Mgmt and Ultrasound OB Procedures Intrapartum: Spontaneous Vag Delivery OB Procedures: : None Peripartum Data Infant Delivery Method: Natural Vaginal Laceration Description: Periurethral (into right labia minora) complications: none [place] 1: Gender: Male Disposition of : home Status at Discharge Functional status at discharge: independent ambulation Overall status at discharge: patient is back to baseline Time Spent with Patient Time attestation: Total time spent providing and/or coordinating discharge services: Time spent: Less than 30 minutes Exam Const: General: cooperative, comfortable, no acute distress and obese Orientation/consciousness: patient oriented x3 Resp: Effort & Inspection: normal respiratory effort Auscultation: clear to auscultation bilaterally Cardio: Rate: regular rate GI: Inspection: non-distended GI Palp: No abdominal tenderness and Yes Soft to palpation Auscultation: normal bowel sounds : Other: fundus firm Skin: General skin exam: normal color Neuro: General: patient oriented x3 Extrem: General: normal to inspection Psych: Appearance: grossly normal Affect: normal affect Attitude: cooperative DS: Data Data Completed and Pending Pending studies at discharge: Pending at discharge 01/19/23 14:50 Surgical [PTH] Routine Discharge Plan Discharge Attending physician on discharge: Susie Johnson Consulting providers: Sinan Nelson; Dulce Ayoub Discharging Clinician: Susie Johnson Anticipated Discharge Date/Time: 01/20/23 17:00 Patient Disposition: Home, Self-Care Activity: may shower and pelvic rest Diet: regular Discharge Instructions: Education: Mom and Baby Guide Given to: Mother Follow-Up: Call your delivering provider's office for an appointment to be seen in: 4 Weeks Mom and baby should come to the [facility] for the follow-up appointment. Appointment Date/Time: January 21, 2023 at 9:00 am What to expect at your follow-up visit: Blood Pressure Check Physical Assessment Call [phone] if you are unable to keep your appointment time. BREAST CARE: * Wear a snug supportive bra. * For engorgement discomfort: Breast Feeding: * Apply warm moist washcloths * Express milk as needed to relieve engorgement * Wear loose clothing * For sore nipples: * Identify correct latch-on * Apply warm moist washcloths before and after nursing * Air dry nipples after nursing * May apply Lansinoh cream to nipples EPISIOTOMY/PERINEAL CARE: * Until bleeding stops, use your julia bottle after urinating * Change your pad frequently throughout the day * You may take sitz baths several times a day (fill your bathtub with warm water and soak for 20 minutes.) Do NOT bathe in the water * No tub baths until seen by your physician - You may shower ACTIVITY: * Rest as much as possible. * Do not exercise or lift anything heavier than your baby (such as laundry or other children.) for 2 weeks. * Avoid stairs or driving as much as possible for 2 weeks. * Do not put anything into the vagina. No douching, tampons, or s
== END 2023-01-20 16:25 | disposition home or self-care (01) | DRG 807 ==
LOC: ANHLDR 05:58 → ANHOB2 17:34
PROVIDERS: Admitting Provider Obstetrics & Gynecology; PCP Nurse Practitioner Family; Visit Provider Obstetrics & Gynecology
DX: O13.4 Gestational [pregnancy-induced] hypertension without significant proteinuria, complicating childbirth (principal); Z37.0 Single live birth; Z3A.37 37 weeks gestation of pregnancy; O70.0 First degree perineal laceration during delivery; O71.82 Other specified trauma to perineum and vulva; O69.81X0 Labor and delivery complicated by cord around neck, without compression, not applicable or unspecified; O99.214 Obesity complicating childbirth; E66.9 Obesity, unspecified; O99.344 Other mental disorders complicating childbirth; F41.9 Anxiety disorder, unspecified; O99.62 Diseases of the digestive system complicating childbirth; K21.9 Gastro-esophageal reflux disease without esophagitis
CPT/HCPCS: 36415; 80053; 84550; 85014; 85018; 85025; 86592; 86850; 86900; 86901; 88307; 90710; A9270; J2590; J2795; J7120

== ENCOUNTER 2023-08-15 10:55 | Outpatient (CLI) | payer OTHER, SELFPAY ==
[2023-08-15 11:10] LABS: Basophils Absolute Auto 0.1 K/mm3 (0.0-0.1); Basophils Percent Auto 0.8 % (0.2-1.2); Eosinophils Absolute Auto 0.2 K/mm3 (0-0.3); Eosinophils Percent Auto 2.2 % (0-4.4); Hemoglobin 14.6 g/dL (12.0-15.0); Immature Granulocyte Absolute 0.03 K/mm3 (0.00-0.031); Immature Granulocyte Percent A 0.4 % (0-0.5); Lymphocytes Absolute Auto 1.82 K/mm3 (0.9-3.2); Lymphocytes Percent Auto 25.5 % (18.3-44.2); Mean Corpuscular HGB Conc 31.7 g/dl (32-36); Mean Corpuscular Hemoglobin 29.1 pg (26-34); Mean Corpuscular Volume 91.6 fl (80-100); Mean Platelet Volume 10.7 fl (7.4-10.4); Monocytes Absolute Auto 0.5 K/mm3 (0.1-0.6); Monocytes Percent Auto 6.6 % (2.6-8.5); Neutrophils Absolute Auto 4.6 K/mm3 (1.3-6.7); Neutrophils Percent Auto 64.5 % (45.5-73.1); Platelet Count Result 283 k/mm3 (150-375); Red Blood Count 5.02 M/mm3 (4.2-5.4); Red Cell Distribution Width 12.8 % (11.5-14.5); White Blood Count 7.1 K/mm3 (4.5-10.0)
[2023-08-15 11:48] LABS: Vitamin D 25 Hydroxy 36.6 ng/mL
[2023-08-15 12:29] LABS: Folic Acid > 20.0 ng/mL (2.76->20)
== END 2023-08-15 10:56 | disposition home or self-care (01) ==
LOC: ANHLAB 10:57
PROVIDERS: PCP Nurse Practitioner Family; Visit Provider Obstetrics & Gynecology
DX: F41.9 Anxiety disorder, unspecified (principal); R53.83 Other fatigue; N92.6 Irregular menstruation, unspecified
CPT/HCPCS: 36415; 82306; 82607; 82746; 84443; 85025